=== PATIENT | male | born 1955 | race Two or more races ===

== ENCOUNTER 2020-05-31 07:59 | Outpatient (CLI) | payer OTHER | END 2020-05-31 08:10 | disposition home or self-care (01) | LOC: RAD 07:59 | PROVIDERS: ATTEND Internal Medicine | DX: R10.84 Generalized abdominal pain (principal); I10 Essential (primary) hypertension; E55.9 Vitamin D deficiency, unspecified; E78.1 Pure hyperglyceridemia; Z12.11 Encounter for screening for malignant neoplasm of colon; M1A.00X0 Idiopathic chronic gout, unspecified site, without tophus (tophi); Z87.891 Personal history of nicotine dependence ==